=== PATIENT | male | born 1980 | race Two or more races ===

== ENCOUNTER 2024-12-20 02:02 | Emergency (ER) | payer MEDICAID, SELFPAY ==
[2024-12-20 02:09] VITALS: BP 141/69; PULSE 115; RESP 20; TEMP 36.9; O2SAT 95
--- NOTE | 2024-12-20 02:18 | XR_ITS ---
Examination: PA lateral chest 2 views TECHNIQUE: Upright PA lateral chest 2 views Exam date and time: December 20, 2024 1349 hours INDICATIONS: Coughing 3 days. FINDINGS: Normal heart size. Accentuation bronchovascular markings. No lobar pneumonia IMPRESSION: Bronchitis pattern
--- NOTE | 2024-12-20 02:20 | EDNOTE_ITS ---
ED SOB =RME/HPI General Chief Complaint: Shortness of Breath/Dyspnea Stated Complaint: COUGH,DIFF BREATHING Time Seen by Provider: 12/20/24 02:12 Source: patient Arrival date/time: 12/20/24 02:02 Limitations: other (Patient intoxicated.) RME / HPI RME / HPI Narrative: 44-year-old male presents for evaluation of shortness of breath and cough x 3 days. Patient describes the cough as productive with yellow sputum. He endorses worsening shortness of breath this evening while he was out drinking with his friends (pt reports 7-8 beers and mixed drinks tonight). He denies abdominal pain, chest pain, hematemesis, nausea, vomiting, fever. Denies known sick contacts. [place] outside working in the rain for several hours x 4 days ago. Denies known history of asthma. Pt reports that he was driven to the ED by his . MD Complaint: shortness of breath and cough Related Data Previous Rx's ?Medication ?Instructions ?Recorded albuterol sulfate 90 mcg/actuation 2 puff inhalation Q 6H PRN 12/20/24 aerosol inhaler (Ventolin HFA) shortness of breath or wheezing #6.7 grams loratadine 10 mg capsule 10 mg PO QDAY allergies 30 d ays 12/20/24 #30 caps Allergies Allergy/AdvReac Type Severity Reaction Status Date / Time No Known Allergies Allergy Verified 12/20/24 02:03 Review of Systems Constitutional Constitutional: Denies body ache(s), Denies fever(s), Denies headache(s), Denies night sweats and Denies weakness ENT Ears, Nose, Mouth, and Throat: Denies otalgia, Denies headache(s), Denies neck pain and Denies sore throat Cardiovascular Cardiovascular: Denies chest pain, Reports dyspnea, Denies irregular heart rhythm, Denies leg edema and Denies palpitations Respiratory Respiratory: Reports cough, Reports dyspnea, Denies hemoptysis and Reports wheezing Gastrointestinal Gastrointestinal: Denies abdominal pain, Denies nausea and Denies vomiting Musculoskeletal Musculoskeletal: Denies back pain, Denies neck pain, Denies numbness, Denies stiffness and Denies tingling Integumentary/Breasts Skin/Breast: Denies rash Neurologic Neurologic: Denies localized weakness, Denies headache(s), Denies numbness, Denies tingling and Denies weakness Endocrine Endocrine: Denies palpitations Allergic/Immunologic Allergic/Immunologic: Reports wheezing Past Medical History Past Medical History CARDIAC: Negative Congestive Heart Failure RESPIRATORY: Negative Chronic Obstructive Pulmonary Disease (COPD) GENITOURINARY: Negative Renal Disease ENDOCRINE: Negative Diabetes Mellitus Type 1 or Diabetes Mellitus Type 2 Social History SMOKING STATUS: Never smoker ED Exam General Limitations: Present other (Patient intoxicated.) General appearance: Present alert and appears intoxicated Head Head exam: Present atraumatic and normocephalic Eye Eye exam: Present normal appearance, PERRL and EOMI; Absent scleral icterus ENT ENT exam: Present normal exam, normal oropharynx, mucous membranes moist and TM's normal bilaterally Neck Neck exam: Present normal inspection and full ROM; Absent lymphadenopathy Chest Chest inspection: Present normal inspection and symmetric chest wall rise; Absent tenderness or rash Respiratory Respiratory exam: Present wheezes (diffuse, bilateral/ ) and accessory muscle use (mild diaphragmatic breathing. ); Absent respiratory distress Cardiovascular Cardiovascular exam: Present tachycardia Abdominal Exam Abdominal exam: Present soft; Absent distention or tenderness Extremities Exam Extremities exam: Present normal inspection Back Exam Back exam: Present normal inspection Neurological Exam Neurological exam: Present alert and normal gait Psychiatric Psychiatric exam: Present normal affect Skin Skin exam: Present warm, dry and normal color; Absent cyanosis Course Quality Measures none Orders Category Date Time Status Bedside COVID-19 Antigen Test NOW Care 12/20/24 02:18 Completed Bedside Influenza A&B Antigen Test NOW Care 12/20/24 02:18 Completed EKG (ED ONLY) *Do not use* NOW Care 12/20/24 02:27 Completed CXR2 [XR chest 2V] Stat Exams 12/20/24 02:18 Completed EKG (ED Only) Stat Exams 12/20/24 02:27 Ordered Albuterol/Ipratr Rt Nora [Duoneb Rt Nora] Med 12/20/24 02:18 Discontinued 3 ml INH X1 ONE Albuterol/Ipratr Rt Nora [Duoneb Rt Nora] Med 12/20/24 03:11 Discontinued 3 ml INH X1 ONE Dexamethasone Inj [Decadron Inj] Med 12/20/24 02:18 Discontinued 10 mg IM X1 ONE Ondansetron Odt [Zofran Odt] Med 12/20/24 02:18 Discontinued 4 mg PO X1 ONE predniSONE Med 12/20/24 04:22 Discontinued 5 mg PO X1 ONE Vital Signs Vital signs: Vital Signs Temperature 98.5 F 12/20/24 02:09 Pulse Rate 115 H 12/20/24 02:09 Respiratory Rate 20 12/20/24 02:09 Blood Pressure 141/69 H 12/20/24 02:09 Pulse Oximetry (%) 95 12/20/24 02:09 Oxygen Delivery Method Room Air 12/20/24 02:09 Pulse ox 95% on room air, within normal limits. Shortness of Breath / Dyspnea MDM Narrative MDM Narrative:: 44-year-old male presented with cough and shortness of breath for the last several days. Patient was intoxicated at the time of our encounter. Patient tachycardic on exam but fortunately EKG showed no signs of ACS at this time. Viral swabs are negative. Given diffuse bilateral wheezing patient was given x 2 breathing treatments in the department and steroids with some improvement in his symptoms. Patient was somnolent, likely related to his reported alcohol consumption prior to arrival and his pulse ox dropped down to 94%. Patient was examined by Dr. Cyr prior to discharge who agreed that he was appropriate for outpatient follow-up. Patient was given a prescription for an albuterol inhaler and advised to take loratadine as he reported symptoms consistent with seasonal allergies over the past month. Strict report return precautions were provided. Patient stable time discharge. Patient data External records reviewed:: [facility] previous records Clinical information provided by:: patient Social determinants that could affect healthcare access:: alcohol use Patient has the following chronic illnesses:: Alcohol misuse. How is presenting disease/condition affected by chronic disease/condition?: uneffected by Evaluation data The following diagnostics were reviewed and interpreted by me:: lab results, radiology exam(s) and EKG tracing(s) Lab and/or radiology exams considered but not ordered:: Blood work considered not ordered. CT chest considered not ordered. Interpretation Summary: COVID and flu negative. EKG with nonspecific ST changes, sinus rhythm, tachycardia. Chest x-ray with bronchitis pattern. Medications / Prescriptions Medications or Prescriptions considered but not ordered:: Rx given. Medication administrations:: Medication Administration History Discontinued Medications Albuterol/Ipratropium (Albuterol/Ipratropium (Duoneb) Rt Nora 3 Ml Nebu) 3 ml INH X1 ONE Stop: 12/20/24 02:19 Last Admin: 12/20/24 02:52 Dose: 3 ml Documented By: NE Albuterol/Ipratropium (Albuterol/Ipratropium (Duoneb) Rt Nora 3 Ml Nebu) 3 ml INH X1 ONE Stop: 12/20/24 03:12 Last Admin: 12/20/24 03:37 Dose: 3 ml Documented By: NE Dexamethasone Sodium Phosphate (Dexamethasone Sod Phos Inj 10 Mg/Ml Vial) 10 mg IM X1 ONE Stop: 12/20/24 02:19 Last Admin: 12/20/24 02:58 Dose: 10 mg Documented By: CVL Ondansetron HCl (Ondansetron Odt 4 Mg Tabrap) 4 mg PO X1 ONE; Protocol Stop: 12/20/24 02:19 Last Admin: 12/20/24 03:04 Dose: 4 mg Documented By: CVL Prednisone (Prednisone 5 Mg Tablet) 5 mg PO X1 ONE Stop: 12/20/24 04:23 Last Admin: 12/20/24 04:33 Dose: 5 mg Documented By: PINOR Rx given. Consultations Consultation(s) initiated? (list below): No Diagnosis Shortness of Breath Differential Diagnosis: acute exacerbation of chronic obstructive airways disease, community acquired pneumonia, asthma with exacerbation, pulmonary embolism and other (Bronchitis) Most likely diagnosis given after review of the tests above:: Bronchitis. Viral illness. Admission Indicated Admission indicated?: not indicated Admission Request Was there a request for admission?: No Disposition Plan Disposition Plan: Discharge Discharge Attestation Discharge Attestation: The patient and all family members were given an opportunity to ask questions and understood the discharge instructions. Discharge instructions specifically effects, indications for sooner follow up or return to the emergency department, and the expected course of current diagnosis. Patient condition: Stable Discharge Plan Plan Patient Disposition: HOME (Self Care) Disposition Comment: stable Prescriptions/Referrals Prescriptions/Med Rec: New loratadine 10 mg capsule 10 mg PO QDAY 30 Days Qty: 30 0RF albuterol sulfate [Ventolin HFA] 90 mcg/actuation HFA aerosol inhaler 2 puff inhalation Q6H PRN (Reason: shortness of breath or wheezing) Qty: 6.7 0RF Problem List Clinical Impression: Reactive airway disease, Bronchitis Patient/Caregiver Discharge Instructions Education Materials: ED Inhaler Use, Asthma Additional Instructions: Take loratadine daily for the next time 30 days. Use albuterol inhaler 2 puffs every 6 hours as needed for wheezing. Follow-up with primary care within the next 2 to 3 days for reevaluation. Return to the ED if your symptoms worsen or change. Continue smoking cessation efforts. Print Language: Sen[place]alese Stand Alone Forms: Mary Award Info., Patient Portal Info Letter PA/[place] Supervising Physician PA/[place] Supervising Physician: Dr. Cyr
[2024-12-20 02:52] VITALS: PULSE 112; RESP 24; O2SAT 89
[2024-12-20] MEDS: ALBUTEROL/IPRATROPIUM (Duoneb) RT SOL 3 ML NEBU INH ×2 (02:52→03:37)
[2024-12-20] MEDS: DEXAMETHASONE SOD PHOS INJ 10 MG/ML VIAL IM (02:58)
[2024-12-20] MEDS: ONDANSETRON ODT 4 MG TABRAP PO (03:04)
[2024-12-20 03:32] VITALS: BP 148/79; PULSE 109; RESP 20; TEMP 36.8; O2SAT 95
[2024-12-20 03:38] VITALS: PULSE 106; RESP 20; O2SAT 94
[2024-12-20] MEDS: predniSONE 5 MG TABLET PO (04:33)
== END 2024-12-20 04:35 | disposition home or self-care (01) ==
PROVIDERS: Emergency Provider Emergency Medicine
DX: J45.909 Unspecified asthma, uncomplicated (principal)
CPT/HCPCS: 71046; 87400; 87811; 93005; 94640; 96372; 99283; A9270; J1100; J7512; Q0162